=== PATIENT | male | born 1990 | race African-American/Black ===

== ENCOUNTER 2022-12-21 16:47 | Emergency (ER) | payer SELFPAY ==
[2022-12-21 16:47] VITALS: BP 136/105; PULSE 77; RESP 18; TEMP 36.8; O2SAT 98; BMI 23.5
--- NOTE | 2022-12-21 17:11 | EDS_ITS ---
HPI History of Present Illness Chief Complaint: Chest Pain Informant: patient Narrative Narrative: Patient presents with chest pain. Patient states he has chest pain on the left side. It is somewhat sharp. He does not really feel short of breath diaphoretic nausea or vomiting. He does feel little lightheaded when it is bad. Its been there for about an hour. It waxes and wanes but does not completely go away. He states he has had this before when he is under a lot of stress and he is under a lot of stress now. He is not suicidal or homicidal. He does not have diabetes blood pressure cholesterol or any history of heart disease. He does smoke and was counseled to quit. His mother did have a heart attack reportedly at the age of 48 show he does have some family history. He has no recent travel surgery or immobilization personal or family history of DVT or PE. He is not short of breath and has no hemoptysis. He has no leg pain or swelling. No back pain. PFSH PFSH Allergy/AdvReac Type Severity Reaction Status Date / Time No Known Allergies Allergy Verified 12/21/22 16:48 Social History Smoking Status: Current every day smoker tobacco type: cigarettes ROS ROS ED ROS Narrative A complete review of systems was performed and is negative except as documented in the history of present illness. Some specific details below. Constitutional: No recent fevers or chills. EYE: No discharge, visual complaints, or pain. ENT: No difficulty swallowing. No swelling. No pain. No reflux symptoms. CV: See history of present illness. Respiratory: Not short of breath or coughing. GI: No abdominal pain. No nausea vomiting diarrhea. No blood in stool. : No frequency dysuria or hematuria. Musculoskeletal: No recent trauma. No pains. No swelling. Skin: No rash. Nondiaphoretic. Neuro: No weakness or numbness. Endocrine: No polyuria or polydipsia. EXAM Physical Exam Narrative Exam Narrative: CONSTITUTIONAL: Patient is nontoxic in appearance. The patient looks comfortable. Work of breathing looks normal. HEENT: No notable trauma. Mucous membranes moist. No sinus tenderness. No indication of pain with swallowing. EYES: No conjunctival injection. No proptosis. NECK:No JVD. No stridor. CARDIOVASCULAR: Regular rate. Regular rhythm. No notable murmur. No JVD. RESPIRATORY: No respiratory distress. Breathing is unlabored. No wheezes. No rhonchi. No rales. No pain with a deep breath. Very mild chest wall tenderness. No lesions or swelling. GASTROINTESTINAL: Not distended. Bowel sounds are normal. No tenderness. No guarding. No rebound. No palpable mass. No bruit is heard. GENITOURINARY: No tenderness over the bladder. No CVA tenderness. MUSCULOSKELETAL: Atraumatic. No peripheral edema. No cord. No tenderness along the deep venous system. No asymmetry. No distended veins. NEUROLOGICAL: Patient is alert and appropriate. No focal deficit noted. SKIN: No noted rashes. No diaphoresis. PSYCHIATRIC: Patient is calm. Mood is appropriate. Mildly flat affect. Const Vital Signs: 12/21/22 16:47 12/21/22 17:30 12/21/22 17:30 Temperature 98.3 F Temperature Source Temporal Pulse Rate 77 67 Respiratory Rate 18 16 Respiratory Effort Blood Pressure 136/105 H 140/102 H Blood Pressure Mean 115 114 Pulse Ox 98 98 Oxygen Delivery Method Room Air Room Air Room Air 12/21/22 17:31 12/21/22 19:00 12/21/22 20:00 Temperature Temperature Source Pulse Rate 66 64 Respiratory Rate 16 16 Respiratory Effort Normal Non-Labored Blood Pressure 129/83 H 119/78 Blood Pressure Mean 98 91 Pulse Ox 98 98 Oxygen Delivery Method Room Air Room Air MDM MDM MDM Narrative Medical decision making narrative: Patient CBC shows normal white count hemoglobin and platelets. Patient's electrolytes show no acute process. Patient's first troponin is negative at 6. My independent interpretation of his single view to image X ray of the chest showed normal cardiac silhouette and paravertebral aortic stripe. No sign of pneumothorax. Final reading is pending. Final reading is come back as no acute radio graph abnormality. Patient's repeat troponin is only 7. I talked with the patient. He is PERC negative. He has no sign of pneumothorax. No clinical suspicion of dissection. He has 2 negative troponins. He has had these symptoms before under stress which she is under now. I think he is safe for discharge. We did discuss reasons to return. Lab Data Attestation: I reviewed the patient's lab results. Labs: Laboratory Results - last 24 hr 12/21/22 12/21/22 12/21/22 17:33 17:33 19:50 WBC 4.7 RBC 4.65 Hgb 15.9 Hct 47.5 MCV 102.2 H MCH 34.2 H MCHC 33.5 RDW Std Deviation 47.4 H RDW Coeff of Rod 12.5 Plt Count 254 MPV 10.0 Immature Gran % (Auto) 0.200 Neut % (Auto) 47.1 Lymph % (Auto) 43.5 H [place] % (Auto) 7.5 Eos % (Auto) 0.4 Baso % (Auto) 1.3 H Absolute Neuts (auto) 2.2 Absolute Lymphs (auto) 2.04 Nucleated RBC % 0 Sodium 138 Potassium 4.3 Chloride 107 Carbon Dioxide 26.0 Anion Gap 5 BUN 10 Creatinine 1.22 Estim Creat Clear Calc 83.32 Est GFR (MDRD) Af Amer 88 Est GFR (MDRD) Non-Af 72 BUN/Creatinine Ratio 8.2 L Glucose 79 Calcium 9.3 Troponin I High Sens 6 7 Radiography Diagnostic Testing: Clinical Impression(s) from Imaging Studies Chest X-Ray 12/21/22 17:35 IMPRESSION: No acute radiographic abnormalities. Electronically Signed: Germán Bray MD at 18:11 EDT , EKG Initial EKG: Comments: My independent interpretation of the patient's EKG done for kraig st pain shows a normal sinus rhythm with overall rate of 60. No ectopy. Mild early repole but no sign of acute infarct or ischemia. WI interval, QRS duration and QTc are normal. I looked for and could not find a prior EKG. Discharge Plan Triage Chief Complaint: Chest Pain ED Provider: Pascual Arredondo Dx/Rx/DC Orders Clinical Impression: Chest pain Instructions: ED Chest Pain, Uncertain Cause Primary Care Provider: Care Physician,No Primary Referrals: Jacque Donnelly MD [Med Staff - [employer] Manager] - 3-5 Days if not improving NOT,DEFINED [Non-Staff] - Disposition Disposition: Home, Self Care
--- NOTE | 2022-12-21 17:11 | EKG12_ITS ---
Test Reason : SOB Blood Pressure : / mmHG Vent. Rate : 060 BPM Atrial Rate : 060 BPM P-R Int : 120 ms QRS Dur : 102 ms QT Int : 412 ms P-R-T Axes : 037 060 025 degrees QTc Int : 412 ms Normal sinus rhythm Normal ECG Confirmed by AMBAR CANTRELL, JANESSA ([id number]), editor index GARLAND BECKHAM ([id number]) on 12/24/2022 10:05:06 A M Referred By: ROBERTO Confirmed By:SANGEETA VILLALTA MD
[2022-12-21 17:30] VITALS: BP 140/102; PULSE 67; RESP 16; O2SAT 98
[2022-12-21] MEDS: Aspirin 81 MG TAB.CHEW 162 MG PO (17:33)
--- NOTE | 2022-12-21 17:35 | RAD_ITS ---
INDICATION: chest pain EXAMINATION/TECHNIQUE: X-RAY - XR Chest 1 View COMPARISON: None. FINDINGS: The lungs are clear. The cardiomediastinal silhouette is unremarkable. No pleural effusion or pneumothorax. No acute osseous abnormalities. RAD/Chest 1 View (Portable) IMPRESSION: No acute radiographic abnormalities. Electronically Signed: Germán Bray MD at 18:11 EDT ,
[2022-12-21 17:43] LABS: Absolute Lymphocyte Count 2.04 X10^3/uL (0.83-4.51); Absolute Neutrophil Count 2.2 X10^3/uL (2.0-7.7); Basophil# 0.06 X10^3/uL; Basophil% 1.3 % (0-1); Eosinophil# 0.02 X10^3/uL; Eosinophils% 0.4 % (0-5); Hematocrit 47.5 % (40-54); Hemoglobin 15.9 g/dL (13.0-16.5); Lymphocyte # 2.04 X10^3/ul (0.83-4.51); Lymphocyte % 43.5 % (19-41); Mean Corp Hgb Conc 33.5 g/dL (32-36); Mean Corpuscular Hgb 34.2 pg (27.0-32.0); Mean Corpuscular Volume 102.2 fL (80-94); Monocyte# 0.35 X10^3/uL; Monocyte% 7.5 % (0-10); NRBC Flagged by Analyzer 0 % (0-5); Neutrophil # 2.21 X10^3/uL (2.7-7.7); Neutrophil % 47.1 % (47-70); Platelet Count 254 K/mm3 (150-450); RBC Distribution Width CV 12.5 % (11.6-14.6); RBC Distribution Width SD 47.4 fl (35.1-43.9); Red Blood Count 4.65 M/mm3 (4.6-6.2); White Blood Count 4.7 K/mm3 (4.4-11.0)
[2022-12-21 18:00] LABS: Anion Gap 5 (5-15); BUN 10 mg/dL (7-18); BUN/Creat Ratio 8.2 RATIO (10-20); Calcium,Total 9.3 mg/dL (8.5-10.1); Chloride 107 mmol/L (98-107); Creatinine, Serum 1.22 mg/dL (0.70-1.30); EST Glomerular Filtration Rate 72 mL/min (>60); Est Glom Filt Rate - Afr Amer 88 mL/min (>60); Estimated Creatinine Clearance 83.32 ml/min; Glucose 79 mg/dL (74-106); Potassium 4.3 mmol/L (3.5-5.1); Sodium Level 138 mmol/L (136-145); Troponin-I HS (w/2H Reflex) 6 pg/mL (3.0-78.0)
[2022-12-21 19:00] VITALS: BP 129/83; PULSE 66; RESP 16; O2SAT 98
[2022-12-21 19:40] LABS: Reflex Troponin-HS? (from REC) Y
[2022-12-21 20:00] VITALS: BP 119/78; PULSE 64; RESP 16; O2SAT 98
[2022-12-21 20:21] LABS: Troponin-I HS 7 pg/mL (3.0-78.0)
[2022-12-21 20:44] VITALS: BP 127/64; PULSE 63; RESP 22; O2SAT 95
== END 2022-12-21 20:47 | disposition home or self-care (01) ==
PROVIDERS: Emergency Provider Emergency Medicine; Visit Provider Emergency Medicine
DX: R07.9 Chest pain, unspecified (principal); F17.210 Nicotine dependence, cigarettes, uncomplicated; Z82.49 Family history of ischemic heart disease and other diseases of the circulatory system
CPT/HCPCS: 71045; 80048; 84484; 85025; 93005; 99284; A4216